=== PATIENT | female | born 1985 | race Native Hawaiian/Other Pacific Islander ===

== ENCOUNTER 2016-06-04 13:52 | Outpatient (CLI) | payer OTHER ==
[2016-06-04 14:37] LABS: PLATELET COUNT 351 K/uL (152-353)
[2016-06-04 15:30] LABS: POTASSIUM 3.8 mmol/L (3.6-5.2); SODIUM 136 mmol/L (136-145)
== END 2016-06-04 14:52 | disposition home or self-care (01) ==
LOC: LABW 13:52
PROVIDERS: Internal Medicine
DX: R53.83 Other fatigue (principal); R51 Headache
CPT/HCPCS: 36415; 80053; 84439; 84443; 85027; 86644; 86645; 86663; 86665

== ENCOUNTER 2019-03-23 07:33 | Outpatient (CLI) | payer BC | END 2019-03-23 20:07 | disposition home or self-care (01) | LOC: RAD 07:33 | DX: R12 Heartburn (principal) ==

== ENCOUNTER 2021-07-18 11:15 | Outpatient (CLI) | payer BC | END 2021-07-18 19:18 | disposition home or self-care (01) | LOC: CT 11:15 | PROVIDERS: ATTEND Nurse Practitioner Family | DX: S00.03XA Contusion of scalp, initial encounter (principal); Y92.9 Unspecified place or not applicable ==